=== PATIENT | female | born 1960 | race Caucasian/White ===

== ENCOUNTER → 2016-11-30 | Outpatient (CLI) | payer OTHER | LOC: FIMAGING 15:04 | PROVIDERS: ATTEND Registered Nurse | DX: M79.671 Pain in right foot (principal) ==

== ENCOUNTER 2017-07-18 13:38 | Inpatient (IN) | payer OTHER ==
[2017-07-18] MEDS ORDERED: ONDANSETRON 4 MG/2 ML VIAL IVP ONE (16:12)
[2017-07-18] MEDS ORDERED: NS 1,000 ML IV ONE (16:12)
--- NOTE | 2017-07-18 16:41 | EDPHY ---
H & P Stated Complaint: abd pain Time Seen by Provider: 07/18/17 16:24 HPI/ROS: Chief Complaint: Abdominal pain HPI: A 56-year-old woman presenting with abdominal pain which began this morning. Been progressively worsening over the course today. Started out as a 3/10. Is now about an 8/10. Is primarily at the right hand side. She has a history of a ruptured appendix in the past status post partial colectomy. No other abdominal surgeries. No recent illness. She has had some nausea and vomiting. No diarrhea or constipation. She is passing normal stool and flatus today. No fevers or chills. No chest pain or shortness of breath. There are no aggravating or alleviating factors. ROS: 10 point Review of Systems is negative except as noted in the HPI. PMH: Ruptured appendix, hypothyroidism Social History: No smoking, occasional alcohol, no recreational drug use Family History: non-contributory Physical Exam: Gen: Awake, Alert, No Distress HEENT: Nose: no rhinorrhea Eyes: PERRLA, EOMI Mouth: Moist mucosa Neck: Supple, no JVD Chest: nontender, lungs clear to auscultation Heart: S1, S2 normal, no murmur Abd: Soft, tenderness in the right upper right lower quadrant with voluntary guarding, Back: no CVA tenderness, no midline tenderness Ext: no edema, non-tender Skin: no rash Neuro: CN II-XII intact, Sensation grossly intact, Strength 5/5 in bilateral upper and lower extremities - Medical/Surgical History Hx Asthma: No Hx Chronic Respiratory Disease: No Hx Diabetes: No Hx Cardiac Disease: No Hx Renal Disease: No Hx Cirrhosis: No Hx Alcoholism: No Hx HIV/AIDS: No Hx Splenectomy or Spleen Trauma: No Other PMH: appy, anil-colectomy - Social History Smoking Status: Former smoker Constitutional: Initial Vital Signs Heart Rate 87 07/18/17 14:26 Respiratory Rate 97 H 07/18/17 14:26 Blood Pressure 135/112 H 07/18/17 14:26 O2 Delivery Mode Room Air Allergies/Adverse Reactions: No Known Allergies Allergy (Verified 11/05/12 16:34) Home Medications: Medication Instructions Recorded Cephalexin [Keflex (*)] 500 mg PO QID #20 tab 11/05/12 Levothyroxine [Synthroid 100 mcg 100 mcg PO DAILY06 11/05/12 (RX)] Medical Decision Making - Diagnostics Imaging Results: Imaging Impressions Abdomen CT 07/18/17 17:20 Impression: 1. Moderate partial SBO probably secondary to adhesion proximal to mid ileum just to the right of the umbilicus anteriorly 2. Mild hepatic steatosis. Findings discussed with Kalyan Ye MD at 17:50 hour, 07/18/2017. Imaging: Discussed imaging studies w/ call or contact centre manager Radiologist ED Course/Re-evaluation: 48-year-old woman with partial small-bowel obstruction. Will discussed with the hospitalist for admission for bowel rest and analgesia. - Data Points Laboratory Results: Laboratory Results 07/18/17 16:00 07/18/17 16:00 07/18/17 07/18/17 16:00 16:00 WBC 12.32 10^3/uL H 10^3/uL (3.80-9.50) RBC 5.15 10^6/uL 10^6/uL (4.18-5.33) Hgb 16.6 g/dL H g/dL (12.6-16.3) Hct 47.9 % H % (38.0-47.0) MCV 93.0 fL fL (81.5-99.8) MCH 32.2 pg pg (27.9-34.1) MCHC 34.7 g/dL g/dL (32.4-36.7) RDW 11.9 % % (11.5-15.2) Plt Count 235 10^3/uL 10^3/uL (150-400) MPV 9.4 fL fL (8.7-11.7) Neut % (Auto) 82.4 % H % (39.3-74.2) Lymph % (Auto) 11.7 % L % (15.0-45.0) [place] % (Auto) 5.0 % % (4.5-13.0) Eos % (Auto) 0.2 % L % (0.6-7.6) Baso % (Auto) 0.5 % % (0.3-1.7) Nucleat RBC Rel Count 0.0 % % (0.0-0.2) Absolute Neuts (auto) 10.15 10^3/uL H 10^3/uL (1.70-6.50) Absolute Lymphs (auto) 1.44 10^3/uL 10^3/uL (1.00-3.00) Absolute Monos (auto) 0.62 10^3/uL 10^3/uL (0.30-0.80) Absolute Eos (auto) 0.03 10^3/uL 10^3/uL (0.03-0.40) Absolute Basos (auto) 0.06 10^3/uL 10^3/uL (0.02-0.10) Absolute Nucleated RBC 0.00 10^3/uL 10^3/uL (0-0.01) Immature Gran % 0.2 % % (0.0-1.1) Immature Gran # 0.02 10^3/uL 10^3/uL (0.00-0.10) Sodium 143 mEq/L mEq/L (135-145) Potassium 4.1 mEq/L mEq/L (3.5-5.2) Chloride 100 mEq/L mEq/L (97-110) Carbon Dioxide 27 mEq/l mEq/l (22-31) Anion Gap 16 mEq/L mEq/L (8-16) BUN 20 mg/dL mg/dL (7-23) Creatinine 1.0 mg/dL mg/dL (0.6-1.0) Estimated GFR 57 Glucose 118 mg/dL H mg/dL (70-100) Calcium 10.7 mg/dL H mg/dL (8.5-10.4) Phosphorus 3.6 mg/dL mg/dL (2.5-4.5) Total Bilirubin 1.0 mg/dL mg/dL (0.1-1.4) AST 40 IU/L IU/L (14-46) ALT 65 IU/L H IU/L (9-52) Alkaline Phosphatase 100 IU/L IU/L (38-126) Total Protein 8.2 g/dL g/dL (6.3-8.2) Albumin 5.0 g/dL g/dL (3.5-5.0) Lipase 92 IU/L IU/L (23-300) Medications Given: Discontinued Medications Sodium Chloride (Ns) 1,000 mls @ 0 mls/hr IV EDNOW ONE; Wide Open PRN Reason: Protocol Stop: 07/18/17 16:13 Last Admin: 07/18/17 16:16 Dose: 1,000 mls Morphine Sulfate (Morphine) 4 mg IVP ONCE ONE Stop: 07/18/17 16:43 Last Admin: 07/18/17 16:53 Dose: 4 mg Ondansetron HCl (Zofran) 4 mg IVP EDNOW ONE Stop: 07/18/17 16:13 Last Admin: 07/18/17 16:16 Dose: 4 mg Departure - Departure Disposition: [facility] Inpatient Acute Clinical Impression: Bowel obstruction Condition: Good Referrals: Tori Rosales MD [Primary Care Provider] - As per Instructions
[2017-07-18 16:49] LABS: PLATELET COUNT 235 10^3/uL (150-400)
[2017-07-18] MEDS ORDERED: IOPAMIDOL (ISOVUE-300) 100 ML BTL ONE (17:23)
[2017-07-18] MEDS ORDERED: LR 1,000 ML IV ONE (20:40)
[2017-07-18] MEDS ORDERED: ceFAZolin 2 GM in D5W 100 ML IV ONE (22:23)
[2017-07-18] MEDS ORDERED: ceFAZolin 2 GM/SWFI 2 GM/20 ML SYR IVP ONE ×2 (22:30→23:00)
[2017-07-18] MEDS ORDERED: BUPIVACAINE 0.5% 30 ML SDV ONE (22:41)
[2017-07-18] MEDS ORDERED: HYDROmorphONE/DILAUDID 1 MG/ML INJ IVP PRN (22:52)
[2017-07-18] MEDS ORDERED: ONDANSETRON 4 MG/2 ML VIAL IVP PRN (22:52)
[2017-07-18] MEDS ORDERED: ACETAMINOPHEN 650 MG SUPP PR PRN (22:52)
[2017-07-18] MEDS ORDERED: ONDANSETRON DISINTEGRATING 4 MG TAB PO PRN (22:52)
[2017-07-18] MEDS ORDERED: D5W 1/2 NS W/ 20 KCl/L 1,000 ML IV SCH (23:00)
--- NOTE | 2017-07-18 23:09 | PDANEPAE ---
ANE History of Present Illness Patient presents for exploratory laparotomy ANE Past Medical History - Pulmonary History Hx Sleep Apnea: No - Endocrine History Hx Diabetes: No Hypothyroid: Yes ANE Review of Systems Review of Systems: ANE Patient History - Allergies Allergies/Adverse Reactions: No Known Allergies Allergy (Verified 07/18/17 20:44) - Home Medications Home medications: home medication list seen and reviewed Home Medications: Ibuprofen [Motrin (*)] 400 mg PO DAILY PRN 07/18/17 [Last Taken 07/17/17] Levothyroxine [Synthroid 112 mcg (*)] 112 mcg PO DAILY06 07/18/17 [Last Taken ] - NPO status NPO Status: no food or drink >8 hours NPO Since - Liquids (Date): 07/18/17 NPO Since - Liquids (Time): 11:30 NPO Since - Solids (Date): 07/18/17 NPO Since - Solids (Time): 11:30 - Anes Hx Anes Hx: no prior problems - Smoking Hx Smoking Status: Former smoker ANE Labs/Vital Signs - Labs Result Diagrams: 07/18/17 16:00 07/18/17 16:00 - Vital Signs Blood Pressure: 119/89 Heart Rate: 87 Respiratory Rate: 16 O2 Sat (%): 94 Height: 165.1 cm Weight: 79.379 kg ANE Physical Exam - Airway Neck exam: FROM Mallampati Score: Class 2 - Pulmonary Pulmonary: no respiratory distress - Cardiovascular Cardiovascular: regular rate and rhythym - ASA Status ASA Status: II ANE Anesthesia Plan Anesthesia Plan: general endotracheal anesthesia (RBA discussed)
[2017-07-18] MEDS ORDERED: fentaNYL 100 MCG/2 ML INJ ONE ×2 (23:11→23:38)
[2017-07-18] MEDS ORDERED: PROPOFOL 200 MG/20 ML VIAL ONE (23:12)
[2017-07-18] MEDS ORDERED: LIDOCAINE 2% 5 ML SDV ONE (23:15)
[2017-07-18] MEDS ORDERED: ROCURONIUM 50 MG/5 ML VIAL ONE ×2 (23:15→23:57)
--- NOTE | 2017-07-18 23:22 | PDGENHP ---
History and Physical - Chief Complaint abdominal pain, vomiting - History of Present Illness 56 yo female with h/o hypothyroidism and ruptured appendix requiring anil- colectomy presents to ED with abdominal pain and vomiting. She last had a BM this am. Later this afternoon, she began feeling increasing abdominal discomfort and developed nausea and vomiting. She denies fevers or chills. No CP, SOB or urinary symptoms. CT abdomen in the ED showed evidence of a partial SBO. Surgery was consulted and she is admiitted to the hospital for further management. History Information - Allergies/Home Medication List Allergies/Adverse Reactions: No Known Allergies Allergy (Verified 07/18/17 20:44) Home Medications: Ibuprofen [Motrin (*)] 400 mg PO DAILY PRN 07/18/17 [Last Taken 07/17/17] Levothyroxine [Synthroid 112 mcg (*)] 112 mcg PO DAILY06 07/18/17 [Last Taken ] I have personally reviewed and updated: family history, medical history, social history, surgical history - Past Medical History Additional medical history: Hypothyroidism - Surgical History Reports: appendectomy, colectomy - Family History Positive for: non-pertinent - Social History Smoking Status: Former smoker Additional social history: Lives independently Review of Systems Review of Systems: ROS: 10pt was reviewed & negative except for what was stated in HPI & below Physical Exam Physical Exam: Temp Pulse Resp BP Pulse Ox 36.8 C 87 16 119/89 H 94 07/18/17 22:25 07/18/17 23:09 07/18/17 23:09 07/18/17 23:09 07/18/17 23:09 Constitutional: no apparent distress Eyes: PERRL Ears, Nose, Mouth, Throat: moist mucous membranes Cardiovascular: regular rate and rhythym Respiratory: no respiratory distress, clear to auscultation Gastrointestinal: other (soft, mild distention, mild TTP, no r/r/g or peritoneal signs) Skin: warm Musculoskeletal: full muscle strength Neurologic: AAOx3 Psychiatric: interacting appropriately Lab Data & Imaging Review 07/18/17 16:00 07/18/17 16:00 WBC 12.32 10^3/uL (3.80-9.50) H 07/18/17 16:00 RBC 5.15 10^6/uL (4.18-5.33) 07/18/17 16:00 Hgb 16.6 g/dL (12.6-16.3) H 07/18/17 16:00 Hct 47.9 % (38.0-47.0) H 07/18/17 16:00 MCV 93.0 fL (81.5-99.8) 07/18/17 16:00 MCH 32.2 pg (27.9-34.1) 07/18/17 16:00 MCHC 34.7 g/dL (32.4-36.7) 07/18/17 16:00 RDW 11.9 % (11.5-15.2) 07/18/17 16:00 Plt Count 235 10^3/uL (150-400) 07/18/17 16:00 MPV 9.4 fL (8.7-11.7) 07/18/17 16:00 Neut % (Auto) 82.4 % (39.3-74.2) H 07/18/17 16:00 Lymph % (Auto) 11.7 % (15.0-45.0) L 07/18/17 16:00 [place] % (Auto) 5.0 % (4.5-13.0) 07/18/17 16:00 Eos % (Auto) 0.2 % (0.6-7.6) L 07/18/17 16:00 Baso % (Auto) 0.5 % (0.3-1.7) 07/18/17 16:00 Nucleat RBC Rel Count 0.0 % (0.0-0.2) 07/18/17 16:00 Absolute Neuts (auto) 10.15 10^3/uL (1.70-6.50) H 07/18/17 16:00 Absolute Lymphs (auto) 1.44 10^3/uL (1.00-3.00) 07/18/17 16:00 Absolute Monos (auto) 0.62 10^3/uL (0.30-0.80) 07/18/17 16:00 Absolute Eos (auto) 0.03 10^3/uL (0.03-0.40) 07/18/17 16:00 Absolute Basos (auto) 0.06 10^3/uL (0.02-0.10) 07/18/17 16:00 Absolute Nucleated RBC 0.00 10^3/uL (0-0.01) 07/18/17 16:00 Immature Gran % 0.2 % (0.0-1.1) 07/18/17 16:00 Immature Gran # 0.02 10^3/uL (0.00-0.10) 07/18/17 16:00 Sodium 143 mEq/L (135-145) 07/18/17 16:00 Potassium 4.1 mEq/L (3.5-5.2) 07/18/17 16:00 Chloride 100 mEq/L (97-110) 07/18/17 16:00 Carbon Dioxide 27 mEq/l (22-31) 07/18/17 16:00 Anion Gap 16 mEq/L (8-16) 07/18/17 16:00 BUN 20 mg/dL (7-23) 07/18/17 16:00 Creatinine 1.0 mg/dL (0.6-1.0) 07/18/17 16:00 Estimated GFR 57 07/18/17 16:00 Glucose 118 mg/dL (70-100) H 07/18/17 16:00 Calcium 10.7 mg/dL (8.5-10.4) H 07/18/17 16:00 Phosphorus 3.6 mg/dL (2.5-4.5) 07/18/17 16:00 Total Bilirubin 1.0 mg/dL (0.1-1.4) 07/18/17 16:00 AST 40 IU/L (14-46) 07/18/17 16:00 ALT 65 IU/L (9-52) H 07/18/17 16:00 Alkaline Phosphatase 100 IU/L (38-126) 07/18/17 16:00 Total Protein 8.2 g/dL (6.3-8.2) 07/18/17 16:00 Albumin 5.0 g/dL (3.5-5.0) 07/18/17 16:00 Lipase 92 IU/L (23-300) 07/18/17 16:00 Assessment & Plan Assessment: Partial SBO - Suspect due to adhesions from prior ruptured appy requiring anil- colectomy. Surgery has consulted and offered laparoscopy versus conservative management. Pt preferred for operative approach and will go to OR tonight. She is NPO. Appreciate Dr. Sharif's assistance. Hypothyroidism - cont levothyroxine once med rec completed Full code Dispo - admit to inpt, anticipate >48 hrs hospitalization
[2017-07-18] MEDS ORDERED: PHENYLEPHRINE HCL 100 MCG/ML SYR ONE (23:29)
[2017-07-18] MEDS ORDERED: DEXAMETHASONE 4 MG/ML VIAL ONE (23:32)
[2017-07-18] MEDS ORDERED: ONDANSETRON 4 MG/2 ML VIAL ONE (23:32)
--- NOTE | 2017-07-18 23:37 | GHP ---
[f rep st] HISTORY AND PHYSICAL DATE OF ADMISSION: 07/18/2017 REQUESTING PHYSICIAN: Dr. Zen Ye. CHIEF COMPLAINT: Abdominal pain. HISTORY OF PRESENT ILLNESS: The patient is a 56-year-old woman who developed abrupt onset of abdomin al pain this morning, it has escalated throughout the day. It is mainly to the right of her umbilicu s. No recent sick contacts. No recent illnesses. She had a CT scan performed in the emergency room which showed dilated small bowel that had abrupt transition point near right of the umbilicus. She reports that she had a normal bowel movement this morning. She has been passing gas throughout the d ay. PAST MEDICAL HISTORY: Hypothyroidism. PAST SURGICAL HISTORY: Right hemicolectomy for a ruptured appendix. SOCIAL HISTORY: She denies tobacco use. She is . No recreational drug use. FAMILY HISTORY: Noncontributory. REVIEW OF SYSTEMS: 10-point review of systems negative. PHYSICAL EXAM: VITAL SIGNS: 36.8, 87, 119/89, 16, 94%. GENERAL: Pleasant, well-nourished, well-gr oomed woman, sitting up on bed. HEENT: Normocephalic. No gross hearing deficits. Mucous membranes moist. Pupils equal and round. No scleral icterus. LUNGS: Clear to auscultation bilaterally. No increased work of breathing. CARDIAC: Regular rate. No peripheral edema. ABDOMINAL: Bowel sound s hypoactive. She is exquisitely tender to the right of the umbilicus and in the right lower quadran t. She is slightly distended. She has a well-healed midline incision. MUSCULOSKELETAL: Normal brian ls. SKIN: Warm and dry. PSYCH: Mood and affect normal. NEURO: Grossly intact. IMPRESSION AND PLAN: The patient is a 56-year-old woman with new onset abdominal pain that is escala ting throughout the day. CT scans concerning for a bowel obstruction. I offered her diagnostic lapa roscopy due to the constellation of her symptoms of the pain, being so tender near the umbilicus; inlucian palm, she had declined this. She then later called and said she would like to proceed with the ope rating room. We will go to the operating room for diagnostic laparoscopy, possible laparotomy, lysis of adhesions, possible bowel resection. The risks and benefits, including, but not limited to, stro ke, heart attack, , blood clots, infection, bleeding, damage to surrounding structures, were dis cussed. /[id number]/MODL
[2017-07-18] MEDS ORDERED: SUGAMMADEX SODIUM 200 MG/2 ML VIAL IVP ONE (23:58)
[2017-07-19] MEDS ORDERED: OXYCODONE/APAP 5/325 TAB PO PRN (00:05)
[2017-07-19] MEDS ORDERED: NALOXONE HCL 0.4 MG/ML INJ IVP PRN (00:05)
[2017-07-19] MEDS ORDERED: HYDROCODONE/APAP 5/325 TAB PO PRN (00:05)
[2017-07-19] MEDS ORDERED: LR 500 ML IV PRN (00:05)
[2017-07-19] MEDS ORDERED: fentaNYL 100 MCG/2 ML INJ IVP PRN (00:05)
[2017-07-19] MEDS ORDERED: fentaNYL 100 MCG/2 ML INJ ONE ×2 (00:19→00:41)
--- NOTE | 2017-07-19 00:30 | POSTOPPROG ---
Post Op Note Date of Operation: 07/19/17 Surgeon: Yaa Sharif Anesthesiologist: dorothy Anesthesia: GET(General Endotracheal) Pre-op Diagnosis: sbo and abdominal pain Post-op Diagnosis: same Indication: 56 yo with escalating abdomnial pain and ct with transition point at umbili Procedure: lap lysis of adhesions Findings: adhesions and internal hernia by umbilicus Inf/Abcess present in the surg proc area at time of surgery?: No EBL: Minimal Specimen(s): none
--- NOTE | 2017-07-19 00:40 | POSTANESTH ---
Post Anesthetic Evaluation Cardiovascular Status: Similar to Pre-Op Cond Respiratory Status: Similar to Pre-op Cond. Level of Consciousness/Mental Status: Can Participate in Eval Pain Control: Adequate, Prn Tx Ordered Nausea/Vomiting Control: Adequate, Prn Tx Ordered Complications Possibly Related to Anesthesia: None Noted
[2017-07-19 05:46] LABS: PLATELET COUNT 165 10^3/uL (150-400)
[2017-07-19] MEDS ORDERED: ENOXAPARIN 40 MG/0.4 ML SYR SC SCH (09:00)
--- NOTE | 2017-07-19 12:20 | SOAPPROG ---
SOAP Progress Note Assessment/Plan: Assessment/Plan: 56yo F POD#1 s/p laparoscopic lysis of adhesions and reduction of internal hernia Clear liquid diet No flatus yet Pain controlled Dispo: home in am if passing flatus. Seen with Dr. Sharif S: Feeling well. Feels gurgling in her abdomen but no flatus yet. Tolerating clears O: Lying in bed, comfortable, no acute distress No increased work of breathing Active bowel sounds throughout, soft, slightly distended, nontender. Incisions clean, dry and intact without evidence of infection Objective: Vital Signs Temp Pulse Resp BP Pulse Ox 36.6 C 75 18 111/69 94 07/19/17 07:50 07/19/17 07:50 07/19/17 07:50 07/19/17 07:50 07/19/17 07:50 Laboratory Results 07/19/17 05:20 07/19/17 05:20 07/18/17 07/19/17 07/20/17 05:59 05:59 05:59 Intake Total 2330 Output Total 10 Balance 2320 ICD10 Worksheet Patient Problems: Problems Problem Status Onset Bowel obstruction Acute
--- NOTE | 2017-07-19 12:47 | ASMTCMCOM ---
CM Note CM Note Notes: Pt had lap lysis of adhesions surgery with Dr Sharif early this morning. Anticipate pt will have no DC needs. CM available if needs change. Date Signed: 07/19/2017 12:46 PM Electronically Signed By:Kami Rivera LCSW
[2017-07-19] MEDS: ACETAMINOPHEN 325 MG TAB PO PRN (14:21)
--- NOTE | 2017-07-19 14:21 | HOSPPROG ---
Hospitalist Progress Note Assessment/Plan: # SBO s/p RAJ - regaining bowel function - clears per Dr Sharif - pain controlled # hypothyroid - synthroid Subjective: passing gas; ambulating; pain 09/09 Objective: Vital Signs Temp Pulse Resp BP Pulse Ox 36.6 C 75 18 111/69 94 07/19/17 07:50 07/19/17 07:50 07/19/17 07:50 07/19/17 07:50 07/19/17 07:50 Laboratory Results 07/19/17 05:20 07/19/17 05:20 07/18/17 07/19/17 07/20/17 05:59 05:59 05:59 Intake Total 2330 Output Total 10 Balance [address] abd reviewed - Physical Exam Constitutional: no apparent distress, appears nourished Cardiovascular: regular rate and rhythym, no murmur, rub, or gallop Respiratory: no respiratory distress, no rales or rhonchi, clear to auscultation Gastrointestinal: normoactive bowel sounds, other (soft, diffuse TTP; laproscopic incisions clean) ICD10 Worksheet Patient Problems: Problems Problem Status Onset Bowel obstruction Acute
[2017-07-19] MEDS ORDERED: oxyCODONE IR 5 MG TAB PO PRN (19:50)
[2017-07-20] MEDS: LEVOTHYROXINE 112 MCG TAB PO SCH (05:55)
[2017-07-20] MEDS: ACETAMINOPHEN 325 MG TAB PO PRN ×2 (08:35→12:55)
--- NOTE | 2017-07-20 09:27 | HOSPPROG ---
Hospitalist Progress Note Assessment/Plan: # SBO s/p RAJ - bowel function returned - post-op management per Dr Sharif # hypothyroid - synthroid # dispo - ok for dc from IM perspective Subjective: some diarrhea today as well as some formed stools Objective: Vital Signs Temp Pulse Resp BP Pulse Ox 37 C 70 16 101/64 92 07/20/17 04:36 07/20/17 04:36 07/20/17 04:36 07/20/17 04:36 07/20/17 04:36 Laboratory Results 07/19/17 05:20 07/19/17 05:20 07/19/17 07/20/17 07/21/17 05:59 05:59 05:59 Intake Total 2330 1550 Output Total 10 1 Balance 2320 1549 - Physical Exam Constitutional: no apparent distress Ears, Nose, Mouth, Throat: hearing normal Cardiovascular: No edema Respiratory: no respiratory distress Gastrointestinal: normoactive bowel sounds, other (soft, mild TTP, laproscopy incisions healing well) Genitourinary: No simon in urethra Skin: warm Musculoskeletal: full muscle strength Neurologic: AAOx3 Psychiatric: interacting appropriately ICD10 Worksheet Patient Problems: Problems Problem Status Onset Bowel obstruction Acute
--- NOTE | 2017-07-20 21:36 | SOAPPROG ---
SOAP Progress Note Assessment/Plan: Assessment: POD # 2 s/p lap lysis of adhesions doing better today had emesis but pt thinks related to reflux having gas and bm likely home in am S: Tender but pain controlled Some ecchymosis by incisions otherwise cdi bs present soft and appropriately tender Plan: 07/20/17 21:35 Objective: Vital Signs Temp Pulse Resp BP Pulse Ox 36.4 C 60 16 118/69 92 07/20/17 15:28 07/20/17 15:28 07/20/17 15:28 07/20/17 15:28 07/20/17 15:28 Laboratory Results 07/19/17 05:20 07/19/17 05:20 07/19/17 07/20/17 07/21/17 05:59 05:59 05:59 Intake Total 2330 1550 1200 Output Total 10 1 Balance 2320 1549 1200 ICD10 Worksheet Patient Problems: Problems Problem Status Onset Bowel obstruction Acute
[2017-07-21] MEDS: ACETAMINOPHEN 325 MG TAB PO PRN (00:40)
[2017-07-21] MEDS: LEVOTHYROXINE 112 MCG TAB PO SCH (05:37)
--- NOTE | 2017-07-21 08:21 | SOAPPROG ---
SOAP Progress Note Assessment/Plan: Assessment/Plan: 56yo F POD#3 s/p laparoscopic lysis of adhesions and reduction of internal hernia Tolerating regular diet Flatus and BMs Pain controlled without Rx Dispo: DC this morning. F/u 2 weeks. Call with worsening symptoms, questions or concerns S: Feeling well. Tolerating regular diet. Lots of bowel movements yesterday. Passing flatus O: Sitting upright in chair, comfortable, no acute distress No increased work of breathing Active bowel sounds throughout, soft, slightly distended, nontender. Incisions clean, dry and intact without evidence of infection Objective: Vital Signs Temp Pulse Resp BP Pulse Ox 36.9 C 65 16 118/60 93 07/21/17 05:38 07/21/17 05:38 07/21/17 05:38 07/21/17 05:38 07/21/17 05:38 Laboratory Results 07/19/17 05:20 07/19/17 05:20 18 07/21/17 07/22/17 05:59 05:59 05:59 Intake Total 1550 1550 Output Total 1 Balance 1549 1550 ICD10 Worksheet Patient Problems: Problems Problem Status Onset Bowel obstruction Acute
[2017-07-21 08:36] VITALS: BP 139/88; PULSE 97; RESP 14; TEMP 97.9; O2SAT 93
--- NOTE | 2017-07-21 08:44 | HOSPPROG ---
Hospitalist Progress Note Assessment/Plan: # SBO s/p RAJ - bowel function returned - f/u Dr Sharif in 2 weeks # hypothyroid - synthroid # dispo - ok for dc from IM perspective today Subjective: come bloating, no abd pain or recurrent emesis Objective: Vital Signs Temp Pulse Resp BP Pulse Ox 36.6 C 97 14 139/88 H 93 07/21/17 08:31 07/21/17 08:31 07/21/17 08:31 07/21/17 08:31 07/21/17 08:31 Laboratory Results 07/19/17 05:20 07/19/17 05:20 07/20/17 07/21/17 07/22/17 05:59 05:59 05:59 Intake Total 1550 1550 Output Total 1 Balance 1549 1550 - Physical Exam Constitutional: appears nourished Eyes: anicteric sclera Ears, Nose, Mouth, Throat: hearing normal Cardiovascular: No edema Respiratory: no respiratory distress Gastrointestinal: No distension Musculoskeletal: full muscle strength Neurologic: AAOx3 Psychiatric: interacting appropriately ICD10 Worksheet Patient Problems: Problems Problem Status Onset Bowel obstruction Acute
--- NOTE | 2017-07-21 14:35 | ASDISCHSUM ---
Discharge Information Plan Status: Medically Cleared to Leave: Discharge Date:07/21/2017 09:08 AM CM D/C Disposition: ADT D/C Disposition:Home, Routine, Self-Care Projected Discharge Date:07/21/2017 09:08 AM Transportation at D/C: Discharge Delay Reason: Follow-Up Date:07/21/2017 09:08 AM Discharge Slot: Final Diagnosis: Placement Information Patient Contact Information Contact Name:NILO Relationship: Address:[address] City:[place] Alternate Phone: State/Zip Code:[place] [address] Email: Financial Information Financial Class:HMO and PPO Plans Primary Plan Desc:[employer] Primary Plan Number:[id number] Secondary Plan Desc: Secondary Plan Number: Assessment Information BC CM Progress Note CM Note CM Note Notes: Pt had lap lysis of adhesions surgery with Dr Sharif early this morning. Anticipate pt will have no DC needs. CM available if needs change. Date Signed: 07/19/2017 12:46 PM Electronically Signed By:Kami Rivera LCSW Intervention Information Intervention Type:*Incorrect Registration Date of Service:07/19/2017 07:04 AM Patient Type:Observation Staff Member:ALLI Ibarra, Mitali Hours: Discipline: Severity: Comment:
--- NOTE | 2017-07-25 20:08 | GDS ---
[f rep st] DISCHARGE SUMMARY . PRIMARY ADMISSION DIAGNOSIS: Partial small-bowel obstruction. SECONDARY DIAGNOSIS: hypothyroidism. REASON FOR ADMISSION: The patient presented to the emergency room on 07/18/2017 complaining of abdominal pain. Abdominal CT showed partial small-bowel obstruction, moderate, with mild hepatic steatosis. She was admitted for surgical intervention, observations and pain control. HOSPITAL COURSE: She was taken to the OR on July 19, [address] Yaa Sharif for laparoscopic lysis of adhesions with reduction of internal hernia. Postop day 1: The patient was on a clear liquid diet. Pain was controlled. Day 2: The patient had bowel movement and flatus. Pain continued to be controlled. Postop day 3: The patient tolerated a regular diet. Pain was controlled without prescription, and the patient was discharged. CONDITION ON DISCHARGE: She is being discharged home in stable condition. The patient had return of bowel function, was ambulating independently, tolerating regular diet, and pain was well controlled without prescription. DISCHARGE MEDICATIONS: No new. The patient was instructed to resume home medications. See EMR for details. DISCHARGE INSTRUCTIONS: The patient may shower. Avoid heavy lifting, pushing or pulling greater than 15 lb x2 weeks. Follow up in [address] Sharif or Delia Dalton PA-C. Call with any worsening symptoms, questions or concerns. /[id number]/MODL MTDD
== END 2017-07-21 09:08 | disposition home or self-care (01) | DRG 337 ==
LOC: OBSVTOIN 18:09 → F3E 07-19 00:45 → F1N 07-19 01:35
PROVIDERS: ADMIT Hospitalist; ATTEND Hospitalist
PROC: 0DNE4ZZ Release Large Intestine, Percutaneous Endoscopic Approach (ICD-10-PCS; principal; 2017-07-19)
DX: K56.51 Intestinal adhesions [bands], with partial obstruction (principal); E03.9 Hypothyroidism, unspecified; Z87.891 Personal history of nicotine dependence
CPT/HCPCS: 96374; J0690; J1100; J2270; J2370; J2405; J2704; J3010; Q9967

== ENCOUNTER → 2017-11-07 | Outpatient (CLI) | payer OTHER | LOC: SBRMNEURO 02:46 | PROVIDERS: ATTEND Student in an Organized Health Care Education/Training Program | DX: G47.33 Obstructive sleep apnea (adult) (pediatric) (principal) ==